=== PATIENT | female | born 1975 | race Caucasian/White ===

== ENCOUNTER 2021-01-11 16:06 | Outpatient (CLI) | payer OTHER, SELFPAY ==
--- NOTE | ~2021-01-11 | MM_ITS ---
EXAMINATION: MM screening roman BI w pauline HISTORY: Screening mammogram TECHNIQUE: Craniocaudal and mediolateral oblique 3-D tomosynthesis images were obtained and synthetic 2-D images were generated. CAD analysis was submitted and interpreted. COMPARISON: No prior mammogram is available for comparison at this institution. BREAST PARENCHYMAL COMPOSITION: The breasts are almost entirely fatty. FINDINGS: Low-density circumscribed benign-appearing 5.3 mm mass is noted in the outer mid right [address] (MLO Tomosynthesis image 40/106, craniocaudal Tomosynthesis image 37/84). 4.5 mm low-density circumscribed benign-appearing mass is noted in the upper outer left breast (MLO T omosynthesis image 7/101, craniocaudal Tomosynthesis image 26/89). There is no evidence of suspicious mass, calcification, or architectural distortion to suggest malign jhonatan in either breast. IMPRESSION: 1. No mammographic evidence of malignancy. 2. Recommend routine screening mammography in one year. BI-RADS Category 2: Benign finding(s). Reviewed, dictated and finalized at location A.
== END 2021-01-11 16:07 | disposition home or self-care (01) ==
LOC: ANHIMG 16:09
PROVIDERS: PCP Internal Medicine; Visit Provider Nurse Practitioner
DX: Z12.31 Encounter for screening mammogram for malignant neoplasm of breast (principal)
CPT/HCPCS: 77063; 77067

== ENCOUNTER 2021-03-08 12:30 | Outpatient (RCR) | payer OTHER, SELFPAY ==
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
--- NOTE | 2021-02-22 11:05 | PCPTNOTE ---
Patient did not show up for scheduled appointment this date. Called and left a message. Then patient called back & said she had a flat tire.
--- NOTE | 2021-02-27 08:50 | PCPTNOTE ---
Patient called & cancelled scheduled appointment this date due to having a fever.
--- NOTE | 2021-03-06 08:42 | PCPTNOTE ---
Patient did not show up for scheduled appointment this date.
--- NOTE | 2021-03-08 13:39 | PTOPEVAL ---
PHYSICAL THERAPY PROGRESS REPORT AND PLAN OF CARE UPDATE Thank you for referring Alisa Pulliam to [facility].? The patient is scheduled to be seen for therapy? 1x/week for 4 weeks. Please review, sign, date and return this plan of care KETTY. I agree with and certify that the following plan of care is medically necessary. Referring Physician Date Attending Provider: Maribell Monson NP Progress Diagnosis thoracic spine pain, bilateral knee pain Onset May 2020 Subjective Information States that she feels like she Query Text:As Reported By Patient/ is walking more equally and Family balanced than she has in years and the pain is reducing. She feels like she is able to hold her posture better. Pain Scale Used Numeric (1 - 10) Self Report Pain Assessment Bilateral Knee(s) Reported Pain Level 4 Pain Description Aching Pain Frequency Chronic,Continuous Pain Aggravating Factors Stair Climbing,Weight Bearing/ Standing Additional Pain Comments improved tolerance with standing Spine, Thoracic Reported Pain Level 4 Pain Description Aching,Soreness Pain Frequency Chronic,Continuous Pain Score Pain Score 4,4: Self Report Interventions Used Interventions Used By Clinicians Exercise,Manual Therapy Techniques Pain Relief Interventions Used By Exercise,Medication Patient Lower Extremity Muscle Strength Testing Hip Strength Right Hip Flexion Strength 5 Normal Hip Extension Strength 4 Good Hip Abduction Strength 4 Good Left Hip Flexion Strength 5 Normal Hip Extension Strength 4 Good Hip Abduction Strength 4 Good Knee Strength Bilateral Knee Flexion Strength 5 Normal Knee Extension Strength 5 Normal Upper Extremity Muscle Strength Testing Scapular/Shoulder Bilateral Scapular Retraction - Rhomboid 2+ Poor + Scapular Retraction - Middle Trapezius 2+ Poor + Scapular Retraction - Lower Trapezius 2+ Poor + Shoulder Flexion Strength 5 Normal Shoulder Extension Strength 5 Normal Shoulder Medial Rotation Strength 5 Normal Shoulder Lateral Rotation Strength 5 Normal Muscle Length Testing Muscle Length Testing Left Hamstring Length -30 Query Text:(90 - 90 Position) Right Hamstring Length -30 Query Text:(90 - 90 Position) Right Prone Knee Flexor Muscle Length ( 110 degrees) Left Prone Knee Flexor Muscle Length ( 110 degrees) [place]
--- NOTE | 2021-03-17 09:42 | PCPTNOTE ---
Patient did not show up for scheduled appointment this date. Called & had to leave a message.
--- NOTE | 2021-03-22 08:42 | PCPTNOTE ---
Patient did not show up for scheduled appointment this date.
--- NOTE | 2021-03-31 10:52 | PCPTNOTE ---
Patient did not show for appointment this date. Called and left voicemail informing patient of upcoming visit. Will update therapist of frequent no shows.
--- NOTE | 2021-04-03 07:56 | PCPTNOTE ---
Patient did not show up for scheduled appointment this date.
--- NOTE | 2021-04-03 07:57 | PCPTNOTE ---
PHYSICAL THERAPY DISCHARGE NOTE Attending Provider: Maribell Monson NP Patient:Alisa Pulliam Date of :1975 Patient has not returned for any further treatments since 03/08/2021, therefore will be discharged at this time. Patient?s initial visit was on 02/14/2021 and had a total of 4 visits. Thank you for referring this patient to [facility]. Please review, sign, date and return this discharge summary KETTY. I have been updated about the patient's current status and I agree with discharge from the above service at this time. Referring Physician Date
== END 2021-04-03 11:44 | disposition home or self-care (01) ==
LOC: ANHPT 12:30
PROVIDERS: PCP Internal Medicine; Visit Provider Nurse Practitioner
DX: M54.6 Pain in thoracic spine (principal); M25.561 Pain in right knee; M25.562 Pain in left knee
CPT/HCPCS: 97110; 97140; 97163

== ENCOUNTER 2022-01-03 01:28 | Day surgery (SDC) | payer OTHER, SELFPAY ==
[2021-12-19 10:34] VITALS: BMI 41.6
[2022-01-03 09:41] VITALS: BP 124/92; PULSE 61; RESP 18; TEMP 36.2; O2SAT 100
[2022-01-03] MEDS: LACTATED RINGERS 1,000 ML 150 ML IV CONT (09:48)
--- NOTE | 2022-01-03 09:51 | WPDANESEPPF ---
Anes - Initial Pre Proc Eval Procedure: Operation Date: 01/03/22 10:45 Proposed Procedures p Esophagogastroduodenoscopy & Colonoscopy - Heath Wylie MD Date/Time: 01/03/22 09:51 Surgeon: Heath Wylie MD Pre Op Diagnosis: melena, epigastric pain Patient Data Age: 46 Gender: F Height: 1.55 m Weight: 107 kg Last Vital Signs Temp 97.1 F L 01/03/22 09:41 Pulse 61 01/03/22 09:41 Resp 18 01/03/22 09:41 BP 124/92 H 01/03/22 09:41 Pulse Ox 100 01/03/22 09:41 O2 Del Method Room Air 01/03/22 09:41 Allergies Allergy/AdvReac Type Severity Reaction Status Date / Time Sulfa (Sulfonamide Allergy Mild Hives Verified 01/03/22 09:39 Antibiotics) Home Medications Medication Instructions Recorded Confirmed Type melatonin 5 mg capsule 5 mg PO PRN PRN Insomnia 01/05/21 12/19/21 History calcium carbonate 600 mg calcium 600 mg PO DAILY 01/31/21 12/19/21 History (1,500 mg) tablet (Calcium) ferrous sulfate 325 mg (65 mg 325 mg PO DAILY 01/31/21 12/19/21 History iron) tablet multivitamin (Daily Multi-Vitamin 1 tablet PO DAILY 01/31/21 12/19/21 History tablet) cetirizine 10 mg tablet (Zyrtec) 10 mg PO DAILY PRN Allergy Symptoms 10/26/21 12/19/21 History pantoprazole 40 mg tablet,delayed 40 mg PO QAM #30 tabs 11/27/21 12/19/21 Rx release sucralfate 1 gram tablet (Carafate) 1 g PO ACHS #120 tabs 11/27/21 12/19/21 Rx Patient hx anesthesia problems: none Family hx anesthesia problems: none Results Review: All pre-operative results and documents have been reviewed as part of the pre-operative evaluation. [facility] Past Medical History Medical History (Updated 11/27/21 @ 08:54 by Juanita Pierre APRN) Allergies Asthma Broken hip Gallbladder disorder Obesity PCOS (polycystic ovarian syndrome) Surgical History Surgical History History of bilateral tubal ligation History of History of cholecystectomy History of hip replacement Family History Family History Grandparent Heart disease Cerebrovascular accident Father Hypertension Diabetes mellitus Social History Social History Smoking status: Never smoker Alcohol intake: never Substance use: never Substance use type: does not use Living arrangements: with family 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 Informed Consent: The patient's anesthetic plan and its attendant risks and benefits were discussed with the patient/family/POA. Questions were solicited and answers provided to the satisfaction of the patient/family/POA.
--- NOTE | 2022-01-03 10:12 | PM.HPGS ---
History of Present Illness History of Present Illness Consent: Risks, benefits, and alternatives have been discussed and questions answered. Patient agrees to proceed with procedure. Chief complaint: melena, epigastric pain Narrative: Alisa Pulliam is a 46 year old female with LUQ and epigastric pain for 12 years, intermittent, ppi not make much of difference, also noted few times blood in stools, never had scopes. Review of Systems Constitutional: Constitutional: Denies headache(s) and Denies weakness Eyes: Eyes: Denies blurry vision ENT: Reports Normal hearing present, Denies headache(s) and Denies neck pain Cardiovascular: Cardiovascular: Denies chest pain and Denies dyspnea Respiratory: Respiratory: Denies dyspnea Gastrointestinal: Gastrointestinal: Reports no additional gastrointestinal complaints Genitourinary: Genitourinary: Denies dysuria Musculoskeletal: Musculoskeletal: Denies neck pain Integumentary/Breasts: Skin/Breast: Denies dry skin Neurologic: Reports Normal hearing present, Denies headache(s) and Denies weakness Psychiatric: Psychiatric: Denies anxiety Endocrine: Endocrine: Denies change in body appearance Hematologic/Lymphatic: Hematologic/Lymphatic: Denies easy bleeding Allergic/Immunologic: Allergic/Immunologic: Denies urticaria PMFSH Past Medical History Medical History (Updated 01/03/22 @ 10:13 by Heath Wylie MD) Allergies Asthma Broken hip Gallbladder disorder LUQ abdominal tenderness Obesity PCOS (polycystic ovarian syndrome) Surgical History Surgical History History of bilateral tubal ligation History of History of cholecystectomy History of hip replacement Family History Family History Grandparent Heart disease Cerebrovascular accident Father Hypertension Diabetes mellitus Social History Social History Smoking status: Never smoker Alcohol intake: never Substance use: never Substance use type: does not use Living arrangements: with family 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 Gender identity (if verbalized by the patient): Female Spiritual care concerns: No Meds Home Medications and Allergies Home Medications Medication Instructions Recorded Confirmed Type melatonin 5 mg capsule 5 mg PO PRN PRN Insomnia 01/05/21 12/19/21 History calcium carbonate 600 mg calcium 600 mg PO DAILY 01/31/21 12/19/21 History (1,500 mg) tablet (Calcium) ferrous sulfate 325 mg (65 mg 325 mg PO DAILY 01/31/21 12/19/21 History iron) tablet multivitamin (Daily Multi-Vitamin 1 tablet PO DAILY 01/31/21 12/19/21 History tablet) cetirizine 10 mg tablet (Zyrtec) 10 mg PO DAILY PRN Allergy Symptoms 10/26/21 12/19/21 History pantoprazole 40 mg tablet,delayed 40 mg PO QAM #30 tabs 11/27/21 12/19/21 Rx release sucralfate 1 gram tablet (Carafate) 1 g PO ACHS #120 tabs 11/27/21 12/19/21 Rx Allergies Allergy/AdvReac Type Severity Reaction Status Date / Time Sulfa (Sulfonamide Allergy Mild Hives Verified 01/03/22 09:39 Antibiotics) Vital Signs Vital Signs - 24 hr 01/03/22 09:41 Temperature 97.1 F L Pulse Rate 61 Respiratory Rate 18 Blood Pressure 124/92 H Pulse Oximetry 100 Oxygen Delivery Room Air Exam Const: General: comfortable and no acute distress HENMT: General nose exam: Normal nares present Eyes: General: appearance normal, both eyes and all related structures Neck: Neck: no JVD Resp: Auscultation: clear to auscultation bilaterally Cardio: Rate: regular rate Rhythm: regular rhythm GI: Inspection: non-distended GI Palp: Yes Soft to palpation Skin: General skin exam: normal color Neuro: General: gait normal Speech: normal speech Extrem: General: normal to inspection Psych: Mental Status: me
--- NOTE | 2022-01-03 10:23 | SUR.OPER ---
EGD completed at 1019, Colonoscopy started at 1023
[2022-01-03 10:36] VITALS: BP 100/56; PULSE 78; RESP 19; O2SAT 97
[2022-01-03 10:46] VITALS: BP 106/76; PULSE 64; RESP 22; O2SAT 97
[2022-01-03 10:56] VITALS: BP 104/70; PULSE 70; RESP 18; O2SAT 100
== END 2022-01-03 11:23 | disposition home or self-care (01) ==
PROVIDERS: PCP Internal Medicine; Visit Provider Internal Medicine Gastroenterology
PROC: 0DJ08ZZ Inspection of Upper Intestinal Tract, Via Natural or Artificial Opening Endoscopic (ICD-10-PCS; CPT 43235; principal; 2022-01-03 10:45)
DX: Z12.11 Encounter for screening for malignant neoplasm of colon (principal); K92.1 Melena; K64.8 Other hemorrhoids; D12.4 Benign neoplasm of descending colon; R10.13 Epigastric pain; E66.01 Morbid (severe) obesity due to excess calories; Z68.41 Body mass index [BMI] 40.0-44.9, adult
CPT/HCPCS: 45385; 43239; 88305; J2704; J7120